=== PATIENT | male | born 1930 ===

== ENCOUNTER 2018-07-25 09:10 | Outpatient (CLI) | payer MEDICARE ==
--- NOTE | 2018-07-25 09:26 | RAD ---
PA AND LATERAL CHEST: Date: 07/25/18 HISTORY: Shortness of breath. COMPARISON: Most recent exam available, which is a 07/27/11 exam. FINDINGS: Heart size within normal limits. Postop sternotomy changes are seen. Lungs are hyperexpanded. There i s now blunting of both costophrenic angles, new as compared to the 2012 study. No infiltrative proces s is seen. IMPRESSION: Small bilateral pleural effusions versus pleural thickening. POS: [facility]
== END 2018-07-25 09:11 | disposition home or self-care (01) ==
LOC: RAD-FRANK 09:10
PROVIDERS: ATTEND Internal Medicine
DX: R06.02 Shortness of breath (principal)
CPT/HCPCS: 71046